=== PATIENT | male | born 1960 | race Caucasian/White ===

== ENCOUNTER 2018-11-07 18:54 | Emergency (ER) | payer OTHER ==
[~2018-11-07] VITALS: Ht 188 cm; Wt 94.3 kg
[2018-11-07 19:24] VITALS: Ht 188 cm; Wt 94.3 kg
[2018-11-07 19:59] LABS: BASOPHIL % 0.5 % (0-2)
[2018-11-07 20:01] LABS: RED CELL DISTRIBUTION WIDTH 23.6 % (11.5-14.5)
[2018-11-07 20:06] LABS: CALCIUM 9.1 mg/dL (8.5-10.1); CARBON DIOXIDE 28.9 mmol/L (21-32); CHLORIDE SERUM 103 mmol/L (98-107); CREATININE SERUM 0.5 mg/dL (0.7-1.3); GFR1 > 60 mL/min; GLUCOSE SERUM 153 mg/dL (74-106); POTASSIUM SERUM 4.4 mmol/L (3.5-5.1); SODIUM SERUM 138 mmol/L (136-145)
[2018-11-07 20:11] LABS: ALBUMIN 1.6 g/dL (3.4-5.0); ALKALINE PHOSPHATASE 124 U/L (46-116); ALT/SGPT 82 U/L (16-63); AST/SGOT 33 U/L (15-37); BILIRUBIN TOTAL 0.2 mg/dL (0.20-1.00); TOTAL PROTEIN, SERUM 7.4 g/dL (6.4-8.2)
[2018-11-07 20:12] LABS: PLATELET COUNT 519 x10^3mcL (130-400); rbc morphology (normal/abnorm) ABNORMAL (NORMAL)
[2018-11-07 20:14] LABS: ovalocyte/elliptocyte 1+; tear drop cell (dacryocyte) 1+
[2018-11-08 04:57] VITALS: BP 118/69
== END 2018-11-08 04:59 | disposition home or self-care (01) ==
LOC: ED 18:54
DX: D64.9 Anemia, unspecified (principal); L89.324 Pressure ulcer of left buttock, stage 4; L89.314 Pressure ulcer of right buttock, stage 4; Z88.0 Allergy status to penicillin; Z88.1 Allergy status to other antibiotic agents
CPT/HCPCS: 36415